=== PATIENT | male | born 1960 | race Caucasian/White ===

== ENCOUNTER 2018-06-22 12:47 | Emergency (ER) | payer OTHER ==
--- NOTE | 2018-06-22 16:36 | ED Physician Documentation ---
History of Present Illness - Stated complaint Stated Complaint: HIGH BP - Chief complaint Chief Complaint: General - History obtained from History obtained from: Patient - History of Present Illness Timing: Today Pain level max: 0 Pain level now: 0 Improved by: nothing Worsened by: nothing - Additonal information Additional information: States high blood pressure today. States ongoing for several years. Made a PCP appointment for today, but his doctor was unavailable today. Asymptomatic today. States normally his blood pressure is 160-170's Review of Systems Constitutional: denies: Fever, Chills Respiratory: denies: Cough GI: denies: Abdominal Pain, Nausea, Vomiting, Diarrhea Skin: denies: Rash Musculoskeletal: denies: Neck pain, Back pain Neurologic: denies: Headache PD PAST MEDICAL HISTORY - Past Medical History Cardiovascular: Hypertension Endocrine/Autoimmune: Type 2 diabetes HEENT: Glaucoma - Past Surgical History Past Surgical History: Yes - Present Medications Home Medications: Ambulatory Orders Medication Instructions Recorded Confirmed Aspirin [Adult Low Dose Aspirin EC] 01/05/16 Atorvastatin [Lipitor] 01/05/16 HYDROcod/ACETAM 5/325 [Shell 5/325] 1 - 2 ea PO Q6H PRN #15 tablet 01/05/16 Insulin Glargine,Hum.rec.anlog 01/05/16 01/05/16 [Lantus] Latanoprost 0.005% Ophth Drops 01/05/16 [Xalatan Ophth Drops] Levothyroxine [Synthroid] 01/05/16 Lisinopril 01/05/16 Mesalamine [Pentasa] 01/05/16 Metoprolol Tartrate 01/05/16 Simvastatin 01/05/16 Timolol [Betimol] 01/05/16 hydroCHLOROthiazide 01/05/16 [Hydrochlorothiazide] metFORMIN [Glucophage] 01/05/16 - Allergies Allergies/Adverse Reactions: Allergies Allergy/AdvReac Type Severity Reaction Status Date / Time Penicillins Allergy Edema Verified 06/22/18 13:08 - Social History Does the pt smoke?: Yes Smoking Status: Current every day smoker Does the pt drink ETOH?: Yes Does the pt have substance abuse?: No PD ED PE NORMAL - Vitals Vital signs reviewed: Yes - General General: Alert and oriented X 3, No acute distress, Well developed/nourished - HEENT HEENT: Moist mucous membranes - Neck Neck: Supple, no meningeal sign - Cardiac Cardiac: RRR, Strong equal pulses - Respiratory Respiratory: No respiratory distress, Clear bilaterally - Abdomen Abdomen: Soft, Non tender, Non distended - Derm Derm: Warm and dry - Extremities Extremities: No edema - Neuro Neuro: Alert and oriented X 3 - Psych Psych: Normal mood, Normal affect Results - Vitals Vitals: Vital Signs - 24 hr 06/22/18 06/22/18 13:06 16:45 Temperature 36.7 C Heart Rate 62 58 L Respiratory 18 18 Rate Blood Pressure 182/89 H 151/71 H O2 Saturation 95 95 Oxygen O2 Source Room air PD MEDICAL DECISION MAKING - ED course Complexity details: considered differential, d/w patient ED course: 57-year-old male with a symptomatic hypertension. Ongoing for several years. We will have him follow-up with his doctor for adjustment of his medications. No emergency medical condition at this time. Patient counseled regarding signs and symptoms for which I believe and urgent re-evaluation would be necessary. Patient with good understanding of and agreement to plan and is comfortable go ing home at this time This document was made in part using voice recognition software. While efforts are made to proofread this document, sound alike and grammatical errors may occur. Departure - Departure Disposition: 01 Home, Self Care Clinical Impression: Hypertension Qualifiers: Hypertension type: essential hypertension Qualified Code(s): I10 - Essential (primary) hypertension Condition: Good Instructions: ED HTN Established Follow-Up: CHE ELDER [Primary Care Provider] - Within 1 week Comments: Follow up with your doctor for adjustment of your medication. Keep a daily log to take with you to your appointments. Return for severe headaches, chest pain or other symptoms. Discharge Date/Time: 06/22/18 17:10
[2018-06-22 16:45] VITALS: BP 151/71
== END 2018-06-22 17:10 | disposition home or self-care (01) ==
LOC: ED 12:47
DX: I10 Essential (primary) hypertension (principal); E11.9 Type 2 diabetes mellitus without complications; Z79.84 Long term (current) use of oral hypoglycemic drugs; Z79.82 Long term (current) use of aspirin; F17.200 Nicotine dependence, unspecified, uncomplicated
CPT/HCPCS: 99282; 99283

== ENCOUNTER 2018-12-11 19:11 | Outpatient (CLI) | payer OTHER | END 2018-12-11 19:12 | disposition EMS.NT | LOC: EMS 19:11 | PROVIDERS: ATTEND Surgery | DX: R42 Dizziness and giddiness (principal); R11.2 Nausea with vomiting, unspecified ==